=== PATIENT | male | born 1995 | race Caucasian/White ===

== ENCOUNTER 2020-04-16 21:22 | Emergency (ER) | payer OTHER ==
[~2020-04-16] VITALS: Ht 188 cm; Wt 77.3 kg
[~2020-04-16 21:22] MED LIST: NO HOME MEDICATIONS; NORCO 325 MG-51 TAB PO; VALIUM 5MG T5 MG/TAB PO
[2020-04-16 21:32] VITALS: BP 111/69; TEMP 97.9
[2020-04-16 22:15] VITALS: PULSE 63
[2020-04-17] MEDS ORDERED: CEPHALEXIN500 M1 PO (16:59)
== END 2020-04-16 22:15 | disposition home or self-care (01) ==
LOC: COL.ER 21:22
DX: S61.213A Laceration without foreign body of left middle finger without damage to nail, initial encounter (principal); S61.211A Laceration without foreign body of left index finger without damage to nail, initial encounter; Z23 Encounter for immunization; W26.0XXA Contact with knife, initial encounter